=== PATIENT | female | born 1985 | race Caucasian/White ===

== ENCOUNTER 2018-02-09 11:49 | Emergency (ER) | payer OTHER ==
[~2018-02-09] VITALS: Ht 162.6 cm; Wt 63.0 kg
[2018-02-09] MEDS ORDERED: IBUPROFEN 600MG TABLET PO ONE (12:15)
[2018-02-09 13:58] VITALS: BP 127/88
== END 2018-02-09 14:00 | disposition home or self-care (01) ==
LOC: ER 13:10
DX: S93.602A Unspecified sprain of left foot, initial encounter (principal); J45.909 Unspecified asthma, uncomplicated; Z88.0 Allergy status to penicillin; X50.1XXA Overexertion from prolonged static or awkward postures, initial encounter; Y93.89 Activity, other specified; Y92.9 Unspecified place or not applicable
CPT/HCPCS: 73630; 81025; 99284; Z7610